=== PATIENT | male | born 1955 | race Caucasian/White ===

== ENCOUNTER 2017-02-23 14:15 | Emergency (ER) | payer OTHER ==
[~2017-02-23] VITALS: Ht 175.3 cm; Wt 65.9 kg
[2017-02-23] MEDS ORDERED: GABA-529 PO (14:24)
[2017-02-23] MEDS ORDERED: DULO20CA30 PO (14:24)
[2017-02-23] MEDS ORDERED: MET500 PO (14:24)
[2017-02-23] MEDS ORDERED: AMLO-512 PO (14:24)
[2017-02-23] MEDS ORDERED: HYDR-305 PO (14:24)
[2017-02-23] MEDS ORDERED: KETOROLAC TROMETHAMINE 60 MG/2 ML VIAL IM ONE (15:45)
[2017-02-23] MEDS ORDERED: METHOCARBAMOL 500 MG TABLET PO ONE (15:45)
[2017-02-23 16:03] VITALS: BP 128/96
== END 2017-02-23 16:54 | disposition home or self-care (01) ==
LOC: EMS 14:17
DX: S16.1XXA Strain of muscle, fascia and tendon at neck level, initial encounter (principal); M54.5 Low back pain; G89.29 Other chronic pain; I10 Essential (primary) hypertension; V49.40XA Driver injured in collision with unspecified motor vehicles in traffic accident, initial encounter; Y93.89 Activity, other specified; Y92.89 Other specified places as the place of occurrence of the external cause; Y99.8 Other external cause status
CPT/HCPCS: 96372; 99283; J1885